=== PATIENT | female | born 1970 | race Caucasian/White ===

== ENCOUNTER → 2017-11-25 | Outpatient (CLI) | payer BC ==
--- NOTE | 2017-11-29 11:50 | P.ARTDOP ---
Arterial Doppler LOWER EXTREMITY ARTERIAL DOPPLER: DATE OF SERVICE: 11/25/2017 Reason for study: Right leg pain. Doppler waveforms: Multiphasic bilaterally throughout. Pulse volume recording: Normal configuration. Pressure gradients: None. Ankle-brachial indices: Greater than 1 bilaterally. Toe pressures: [] on the right, [] on the left Impression: Normal study.
== END | disposition home or self-care (01) ==
LOC: RADUSWWP 12:50
PROVIDERS: ATTEND Family Medicine
DX: R25.2 Cramp and spasm (principal)
CPT/HCPCS: 93923

== ENCOUNTER 2018-09-14 10:10 | Day surgery (SDC) | payer BC ==
[2018-09-13 09:20] VITALS: BMI 27.4
[~2018-09-14 10:10] MED LIST: LACTATED RINGERS 1,000 ML IV SCH
[2018-09-14 10:41] VITALS: RESP 16; TEMP 97.3
[2018-09-14] MEDS ORDERED: PROPOFOL 10 MG/ML 20 ML VIAL IV ONE (11:54)
[2018-09-14] MEDS ORDERED: LIDOCAINE 1% INJ 10MG/ML (20 ML MDV) ONE (11:54)
[2018-09-14] MEDS ORDERED: GLYCOPYRROLATE 0.2 MG/ML 2 ML VIAL ONE (11:54)
--- NOTE | 2018-09-14 12:17 | P.PCN ---
Date of Procedure: 09/14/18 Procedure(s) Performed: Procedure: Total colonoscopy. Preoperative diagnosis: Screening for neoplasia. Postoperative diagnosis: Diverticulosis with no evidence of acute diverticulitis, pictures, polyps or cancer. Preparation: HalfLytely prep. Sedation: Was provided by anesthesia. Brief clinical history: The patient is a 48-year-old female who is scheduled for this evaluation for screening for neoplasia age being his risk factor as well as family history of colon cancer in her mother who was diagnosed at age 78. The patient has no abdominal complaints, bleeding or anemia. Procedure: With the patient on her left lateral decubitus position and after informed consent and adequate sedation, the perianal area was inspected and it did not show any fissures or fistulas. There were no masses felt on digital rectal examination. The Olympus CFH 190L video colonoscope was then inserted in the rectum in the usual fashion and advanced to the cecum. There were multiple diverticular orifices seen scattered along the length of the bowel, mostly in the sigmoid with no evidence of acute diverticulitis or strictures. The mucosa appeared healthy. No polyps or tumors were seen or other pathology. I retroflexed the endoscope in the rectum before the endoscope was withdrawn. The patient tolerated the procedure well. Plan: The patient was reassured. Discussed dietary measures. She will follow- up with you as planned and I recommended repeat exam in 5 years.
[2018-09-14 12:36] VITALS: BP 137/80; PULSE 49
== END 2018-09-14 12:57 | disposition home or self-care (01) ==
LOC: ORWHC2ENDO 10:10
DX: Z12.11 Encounter for screening for malignant neoplasm of colon (principal); K57.30 Diverticulosis of large intestine without perforation or abscess without bleeding; I10 Essential (primary) hypertension; Z80.0 Family history of malignant neoplasm of digestive organs; Z79.899 Other long term (current) drug therapy
CPT/HCPCS: 45378

== ENCOUNTER → 2022-09-23 | Outpatient (CLI) | payer BC ==
--- NOTE | 2022-09-23 08:48 | FL ---
EXAMINATION: Upper GI examination DATE: 09/23/2022 CLINICAL INDICATION: 52-year-old female K21.9, gastroesophageal reflux, burning stomach pain for 3 we eks. COMPARISON: None Total Fluoroscopy Time: 2 minutes 20 seconds Total dose area product (DAP) in uGy*m?, mGy*cm? (or similar): 483.01. 69 images obtained. FINDINGS: The esophagus has a normal course, caliber, and mucosa. No fixed narrowing. Mild tertiary peristaltic waves are demonstrated along with a mild blunted secondary stripping waves. When the patient is prone/supine, slight delay incomplete clearance of contrast from the esophagus. No hiatal hernia is identified. There is no gastroesophageal reflux identified. The stomach and duodenum are free of any persistent filling defect and demonstrate a normal mucosal p attern. No ulcer is identified. IMPRESSION: Aside from some mild age-related esophageal dysmotility, unremarkable upper GI examination.
--- NOTE | 2022-09-23 12:50 | US ---
EXAMINATION TYPE: US abdomen complete DATE OF EXAM: 09/23/2022 COMPARISON: NONE CLINICAL INDICATION: Female, 52 years old with history of K21.9 GASTRO ESOPHAGEAL REFLUX; TECHNIQUE: Multiple sonographic images of the abdomen are obtained. FINDINGS: EXAM MEASUREMENTS: Liver Length: 14.4 cm Gallbladder Wall: .21 cm CBD: .23 cm Spleen: 8.9 cm Right Kidney: 11.3x5.0x5.6 cm Left Kidney: 9.5x5.7x5.8 cm Pancreas: wnl Liver: wnl Gallbladder: wnl Evidence for sonographic Tesfaye's sign: no CBD: wnl Spleen: wnl Right Kidney: wnl Left Kidney: No hydronephrosis. Several anechoic areas noted superior pole: anechoic area measures 1.0x1.1x0.9cm mid: anechoic area measures 1.2x1.0x1.0cm inferior pole: complex anechoic area measures 1.7x1.3x1.6cm with internal septations. Upper IVC: wnl Abd Aorta: wnl IMPRESSION: Cortical lesions in the left kidney. The 2 smaller lesions measuring up to 1.2 cm are compatible with benign cysts. The lower pole lesion measures 1.7 cm and is a mildly complex cyst which can be reasse ssed at a 6 month follow-up ultrasound. Otherwise, no specific abnormality; no gallstones or biliary ductal dilatation.
== END | disposition home or self-care (01) ==
LOC: RADUSWWP 06:44
PROVIDERS: ATTEND Family Medicine
DX: K21.9 Gastro-esophageal reflux disease without esophagitis (principal); N28.89 Other specified disorders of kidney and ureter; K22.4 Dyskinesia of esophagus
CPT/HCPCS: 74240; 76700